=== PATIENT | male | born 1990 | race Caucasian/White ===

== ENCOUNTER → 2021-04-25 | Outpatient (CLI) | payer OTHER ==
--- NOTE | 2021-04-25 12:56 | 2DMMODE ---
[place] [address] 2 D/M-MODE ECHOCARDIOGRAM Name: CORINNE KRUEGER Room: [facility]#: [id number] Admission: 04/25/21 Attend Phys: Mari Walton, Discharge: Date of : 88 Date of Service: 04/25/21 1256 Report #: [id number] THIS REPORT FOR: cc: Palma Garrison Angela NP-C Holkins, John M. MD [facility] ~ APPROVED REPORT Study performed: 04/25/2021 10:50:44 EXAM: Comprehensive 2D, Doppler, and color-flow Echocardiogram Patient Location: Out-Patient BSA: 2.07 HR: 61 bpm BP: 122/78 mmHg Other Information Study Quality: Good Indications Chest Pain 2D Dimensions IVSd: 9.07 (7-11mm) LVOT Diam: 22.16 (18-24mm) LVDd: 48.31 mm PWd: 9.35 (7-11mm) Ascending Ao: 26.56 (22-36mm) LVDs: 29.25 (25-40mm) Aortic Root: 33.88 mm Volumes Left Atrial Volume (Systole) LA ESV Index: 13.60 mL/m2 Aortic Valve AoV Peak Jose.: 0.93 m/s AO Peak Gr.: 3.45 mmHg LVOT Max P.90 mmHg AO Mean Gr.: 2.06 mmHg LVOT Mean P.76 mmHg LVOT Max V: 0.99 m/s AO V2 VTI: 19.21 cm LVOT Mean V: 0.60 m/s FANNY (VTI): 3.79 cm2 LVOT V1 VTI: 18.86 cm Mitral Valve E/A Ratio: 1.40 [place] [address] 2 D/M-MODE ECHOCARDIOGRAM Name: CORINNE KRUEGER Room: [facility]#: [id number] Admission: 04/25/21 Attend Phys: Mari Walton, Discharge: Date of : 88 Date of Service: 04/25/21 1256 Report #: [id number] MV Decel. Time: 236.20 ms MV E Max Jose.: 0.60 m/s MV PHT: 68.50 ms MVA (PHT): 3.21 cm2 TDI E/Lateral E': 3.75 E/Medial E': 3.53 Medial E' Jose.: 0.17 m/s Lateral E' Jose.: 0.16 m/s Pulmonary Valve PV Peak Jose.: 0.87 m/s PV Peak Gr.: 3.03 mmHg Tricuspid Valve RAP Estimate: 5.00 mmHg TR Peak Gr.: 21.12 mmHg RVSP: 26.12 mmHg PA Pressure: 26.12 mmHg Left Ventricle The left ventricle is normal size. There is normal LV segmental wall motion. There is normal left ventricular wall thickness. Left ventricular systolic function is normal. The left ventricular ejection fraction is within the normal range. LVEF is 55-60%. The left ventricular diastolic function is normal. Right Ventricle The right ventricle is normal size. The right ventricular systolic function is normal. Atria The left atrium size is normal. The right atrium size is normal. Aortic Valve The aortic valve is normal in structure. No aortic regurgitation is present. There is no aortic valvular stenosis. Mitral Valve The mitral valve is normal in structure. Trace mitral regurgitation. No evidence of mitral valve stenosis. Tricuspid Valve The tricuspid valve is normal in structure. Mild tricuspid regurgitation[place] [address] 2 D/M-MODE ECHOCARDIOGRAM Name: CORINNE KRUEGER Room: [facility]#: [id number] Admission: 04/25/21 Attend Phys: Mari Walton, Discharge: Date of : 88 Date of Service: 04/25/21 1256 Report #: [id number] The pulmonary valve is normal in structure. Mild pulmonic regurgitation. Great Vessels The aortic root is normal in size. IVC is normal in size and collapses >50% with inspiration. Pericardium There is no pericardial effusion. <Conclusion> The left ventricle is normal size. There is normal left ventricular wall thickness. Left ventricular systolic function is normal. The left ventricular ejection fraction is within the normal range. LVEF is 55-60%. The left ventricular diastolic function is normal. The left atrium size is normal. The aortic valve is normal in structure. The mitral valve is normal in structure. Trace mitral regurgitation. The tricuspid valve is normal in structure. Mild tricuspid regurgitation. IVC is normal in size and collapses >50% with inspiration. There is no pericardial effusion. There is normal LV segmental wall motion. <ELECTRONICALLY SIGNED> By: Tom Kramer MD, FACC 04/25/21 1256 1256 1256 Tom Kramer MD, FACC /INF
--- NOTE | 2021-04-25 13:05 | EXE ---
[place] [address] STRESS ECHOCARDIOGRAM Name: CORINNE KRUEGER Room: [facility]#: [id number] Admission: 04/25/21 Attend Phys: ClaraGrover Walton, Discharge: Date of : 88 Date of Service: 04/25/21 1305 Report #: [id number] THIS REPORT FOR: cc: Palma Garrison Angela NP-C Holkins, John M. MD [facility] ~ APPROVED REPORT Study performed: 04/25/2021 12:37:24 Exam: Stress Echocardiogram Indication: Chest pain, Tachycardia Patient Location: Out-Patient Stress Nurse: Diana Wong RN Supervising Physician: Tom Kramer MD Ht: 5 ft 10 in HR: 60 bpm BP: 146/54 mmHg Procedure The patient underwent an Exercise Stress Test using the Kayden Protocol. Blood pressure, heart rate, and EKG were monitored. An Echocardiogram was performed by cnc technician in four stages in quad fashion. At peak stress, four selected images were obtained and placed side by side with resting images for comparison. Stress Test Details Stress Test: Exercise stress testing was performed using a Kayden protocol. HR Resting HR: 60 bpm Max Heart Rate (APMHR): 189 bpm Max HR Achieved: 171 bpm Target HR (85% APMHR): 160 bpm % of APMHR: 90 Recovery HR: 96 bpm HR response to stress: Normal HR response to stress BP Resting BP: 146/54 mmHg Max BP: 158/42 mmHg Recovery BP: 138/81 mmHg BP response to stress: Normal blood pressure response to stress. ECG Resting ECG: sinus shythm, [place] [address] STRESS ECHOCARDIOGRAM Name: CORINNE KRUEGER Room: [facility]#: [id number] Admission: 04/25/21 Attend Phys: Mari Walton, Discharge: Date of : 88 Date of Service: 04/25/21 1305 Report #: [id number] Stress ECG: no ischemic st-t changes Arrhythmia: no arrhythmias Recovery ECG: no ischemic st-t changes Recovery Arrhythmia: no arrhythmias Clinical Reason for Termination: Completed protocol, Maximal effort Exercise duration: 14 min 16 sec Highest Stage Achieved: Stage 4: 4.2 mph at 16% grade. Exercise capacity: 14.83 METs Pre-Stress Echo The resting Echocardiogram showed normal left ventricular contractility with an estimated Ejection Fraction of about 55-60%. Normal wall motion in all segments on baseline images. Post-Stress Echo The stress Echocardiogram showed normal left ventricular contractility with an estimated Ejection Fraction of about >70%. Normal augmentation of wall motion in all segments on post stress images. Conclusion Clinical Response: Non-ischemic Exercise Capacity: Above average Stress ECG Response: Non-ischemic Stress Echo Images: Non-ischemic Other Information Study Quality: Good <ELECTRONICALLY SIGNED> By: Tom Kramer MD, FACC 04/25/211304 04 04 Tom Kramer MD, FACC /INF
== END ==
LOC: M.CRD 04-07 16:15
PROVIDERS: ATTEND Internal Medicine
DX: I08.8 Other rheumatic multiple valve diseases (principal)